=== PATIENT | male | born 2000 | race Caucasian/White ===

== ENCOUNTER → 2023-07-05 14:59 | Outpatient (CLI) | payer OTHER, SELFPAY ==
--- NOTE | ~2023-07-05 | XR_ITS ---
EXAMINATION: XR cervical spine 4-5V DATE: 07/05/2023 15:28 INDICATION: Recurrent neck pain. TECHNIQUE: 7 views of the cervical spine were obtained. COMPARISON: None. FINDINGS: Bone alignment is normal. Vertebral body heights and intervertebral disc heights are normal . At C4-C5 and C5-C6, there is mild bilateral uncovertebral joint osteoarthritis. At C4-C5 and C5-C6, there is mild bilateral neural foraminal stenosis and mild central canal stenosis. No prevertebral s oft tissue swelling. IMPRESSION: 1. Mild cervical spondylosis. Reviewed, dictated and finalized at location E.
== END ==
PROVIDERS: PCP Chiropractor; Visit Provider Chiropractor
DX: M47.892 Other spondylosis, cervical region (principal)
CPT/HCPCS: 72050